=== PATIENT | female | born 1995 | race Caucasian/White ===

== ENCOUNTER 2017-01-16 18:29 | Emergency (ER) | payer BC ==
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
[~2017-01-16 18:29] MED LIST: NAPROXEN250 MG PO; NO MEDICATIONS
[2017-01-16] MEDS ORDERED: BIRTH CONTROL PILL (18:33)
== END 2017-01-16 19:48 | disposition home or self-care (01) ==
LOC: SED 18:29
DX: S29.012A Strain of muscle and tendon of back wall of thorax, initial encounter (principal); Z88.2 Allergy status to sulfonamides; Z88.8 Allergy status to other drugs, medicaments and biological substances; X58.XXXA Exposure to other specified factors, initial encounter; Y92.89 Other specified places as the place of occurrence of the external cause
CPT/HCPCS: 72072; 99283

== ENCOUNTER 2017-01-27 15:59 | Emergency (ER) | payer BC ==
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
[~2017-01-27 15:59] MED LIST changes: +BIRTH CONTROL PILL
== END 2017-01-27 19:25 | disposition home or self-care (01) ==
LOC: CFTX 15:59 → CED 15:59 → CFTX 19:12
DX: S29.012A Strain of muscle and tendon of back wall of thorax, initial encounter (principal); S80.02XA Contusion of left knee, initial encounter; Z88.2 Allergy status to sulfonamides; Z88.8 Allergy status to other drugs, medicaments and biological substances; V43.62XA Car passenger injured in collision with other type car in traffic accident, initial encounter; Y92.410 Unspecified street and highway as the place of occurrence of the external cause
CPT/HCPCS: 72072; 73560; 99283